=== PATIENT | female | born 1995 | race Caucasian/White ===

== ENCOUNTER → 2023-04-23 09:17 | Outpatient (CLI) | payer BC, SELFPAY ==
--- NOTE | ~2023-04-23 | MR_ITS ---
MRI of the right foot CLINICAL HISTORY: Hindfoot pain TECHNIQUE: Sagittal T1-weighted and STIR images, axial proton-density and proton-density fat-sat imag es, and coronal T1-weighted and proton-density fat-sat images were performed. FINDINGS: There is marked thickening and probable high-grade partial tearing involving the medial cor d of the plantar fascia near its calcaneal origin. Bone marrow signals are unremarkable. Joint spaces are preserved. No joint effusion. No soft tissue m ass or fluid collection evident. No osteochondral lesion of the talar dome. Syndesmotic ligaments of the ankle are intact. Anterior and posterior talofibular ligaments, and calc aneofibular ligament are intact. Deltoid ligament is intact. Medial flexor tendons at the ankle are intact. Peroneal tendons, anterior extensor tendons, and Achil les tendon are intact. IMPRESSION: High-grade partial tearing at the medial cord of the plantar fascia. This could reflect an acute inju ry versus severe plantar fasciitis. Reviewed, dictated and finalized at [facility]. D TRAVEL COUNSELOR IMPRESSION: High-grade partial tearing at the medial cord of the plantar fascia. This could reflect an acute injury versus severe plantar fasciitis.
== END ==
PROVIDERS: PCP Family Medicine Sports Medicine; Visit Provider Family Medicine Sports Medicine
DX: S93.691A Other sprain of right foot, initial encounter (principal); X58.XXXA Exposure to other specified factors, initial encounter
CPT/HCPCS: 73718

== ENCOUNTER 2023-05-01 12:55 | Outpatient (CLI) | payer BC, SELFPAY ==
[2023-05-01 19:54] LABS: Alanine Aminotransferase 19 U/L (6-35); Albumin Level 4.5 g/dL (3.5-5.1); Alkaline Phosphatase 73 U/L (38-126); Anion Gap 9 mmol/L (8-16); Aspartate Amino Transferase 43 U/L (14-36); Bilirubin,Total 0.4 mg/dL (0.2-1.3); Blood Urea Nitrogen 9 mg/dL (7-17); Calcium 9.8 mg/dL (8.4-10.2); Carbon Dioxide 27 mmol/L (22-30); Chloride 104 mmol/L (98-107); Cholesterol 198 mg/dL (0-200); Estimated Glomerular Filt Rate > 60; Glucose 94 mg/dL (65-110); HDL Direct 45 mg/dL; Potassium 4.6 mmol/L (3.4-5.0); Sodium 140 mmol/L (137-145); Triglycerides 110 mg/dL (<150)
[2023-05-01 20:05] LABS: LDL Cholesterol Direct 119 mg/dL
[2023-05-01 20:11] LABS: Hemoglobin A1C 5.3 % (<5.7)
== END 2023-05-01 12:56 | disposition home or self-care (01) ==
LOC: ANHGOSHLAB 12:57
PROVIDERS: PCP Emergency Medicine; Visit Provider Emergency Medicine
DX: E66.01 Morbid (severe) obesity due to excess calories (principal); Z68.41 Body mass index [BMI] 40.0-44.9, adult
CPT/HCPCS: 36415; 80053; 80061; 83036